=== PATIENT | female | born 1945 | race Caucasian/White ===

== ENCOUNTER 2016-10-12 08:10 | Day surgery (SDC) | payer MEDICARE, OTHER ==
[2016-10-12] MEDS: RINGERS SOLUTION,LACTATED 1,000 ML IV PRN (08:35)
--- NOTE | 2016-10-12 10:01 | OR ---
Operative Report - Dictated Report Narrative: Date: 10/12/2016 PREOP: Family hx colon CA, Person hx polyps, screening for colon CA POSTOP: same, mild diverticulosis PROC: Total colonoscopy SURG: Eren Nelson MD ANESTH: MAC per SCALER EBL: none SPECIMENS: none COMPS: none apparent DESCRIPTION: After informed consent and appropriate sedation the patient was placed in the left lateral decubitus position. A flexible fiberoptic video colonoscopy was introduced and advanced under direct vision without difficulty to the cecum. The usual landmarks were identified. Preparation was excellent and excellent views were obtained. The finds were of a normal cecum, ascending colon, hepatic flexure, transverse colon, splenic flexure, descending colon, sigmoid colon except for a few scattered diverticuli, and rectum. Anus was normal. The mucosal color, vasculature and texture were normal throughout. No suspicious masses were seen. The patient tolerated the procedure well without apparent complications and was discharged form the endoscopy suite in stable condition.
[2016-10-12 11:13] VITALS: BP 124/56
== END 2016-10-12 08:11 | disposition home or self-care (01) ==
LOC: AMB 08:10
PROVIDERS: ATTEND Specialist
PROC: 0DJD8ZZ Inspection of Lower Intestinal Tract, Via Natural or Artificial Opening Endoscopic (ICD-10-PCS; principal; 2016-10-12 09:30)
DX: Z12.11 Encounter for screening for malignant neoplasm of colon (principal); K57.30 Diverticulosis of large intestine without perforation or abscess without bleeding; E11.9 Type 2 diabetes mellitus without complications; I10 Essential (primary) hypertension; E03.9 Hypothyroidism, unspecified; M19.90 Unspecified osteoarthritis, unspecified site; E66.9 Obesity, unspecified; Z68.41 Body mass index [BMI] 40.0-44.9, adult; Z86.010 Personal history of colon polyps; Z87.891 Personal history of nicotine dependence; Z80.0 Family history of malignant neoplasm of digestive organs